=== PATIENT | male | born 1965 ===

== ENCOUNTER 2022-07-10 10:21 | Emergency (ER) | payer OTHER ==
[~2022-07-10 10:21] MED LIST: Sodium Chloride 0.9% 1,000 ML IV ONE; Sodium Chloride 0.9% 10 ML Syringe FLUSH PRN
[2022-07-10] MEDS ORDERED: Bacitracin Oint 1 GM U/D Packet TOP ONE (10:31)
[2022-07-10 10:32] LABS: ANION GAP 10.5 mEq/L (7-13); CHLORIDE,CL 106 mmol/L (98-107); ESTIMATED GFR 43 mL/min (>=60); SODIUM,NA 138 mmol/L (136-145)
[2022-07-10 10:43] LABS: PTT,PARTIAL THROMBOPLSTIN TIME 22.3 SEC (22.0-34.0)
[2022-07-10 11:23] LABS: AMPHETAMINES,URINE NEGATIVE (NEGATIVE); BARBITURATES,URINE NEGATIVE (NEGATIVE); BENZODIAZEPINE,URINE NEGATIVE (NEGATIVE); MDMA (ECSTASY), URINE NEGATIVE (NEGATIVE); METHADONE,URINE NEGATIVE (NEGATIVE); METHAMPHETAMINES,URINE NEGATIVE (NEGATIVE); OPIATES,URINE NEGATIVE (NEGATIVE); OXYCODONE,URINE NEGATIVE (NEGATIVE); PHENCYCLIDINE,URINE NEGATIVE (NEGATIVE); TCA,URINE NEGATIVE (NEGATIVE)
[2022-07-10] MEDS ORDERED: Cyclobenzaprine 10 MG Tab PO ONE (11:48)
== END 2022-07-10 11:41 | disposition home or self-care (01) ==
LOC: DL.ED 10:21
DX: S01.512A Laceration without foreign body of oral cavity, initial encounter (principal); S00.33XA Contusion of nose, initial encounter; S00.81XA Abrasion of other part of head, initial encounter; D64.9 Anemia, unspecified; I25.810 Atherosclerosis of coronary artery bypass graft(s) without angina pectoris; I10 Essential (primary) hypertension; V59.49XA Driver of pick-up truck or van injured in collision with other motor vehicles in traffic accident, initial encounter; Y92.410 Unspecified street and highway as the place of occurrence of the external cause
CPT/HCPCS: 36415; 70450; 70486; 71045; 72125; 72170; 80053; 80305-QW; 80307; 81001; 82150; 83690; 84484; 85025; 85610; 85730; 87086; 96360; 99285-25